=== PATIENT | female | born 1985 | race American Indian/Alaskan Native ===

== ENCOUNTER 2021-02-07 22:22 | Emergency (ER) | payer SELFPAY ==
[2021-02-08 03:46] VITALS: BP 120/86
== END 2021-02-08 04:22 | disposition home or self-care (01) ==
LOC: ED 22:22
DX: R05.9 Cough, unspecified (principal); R09.81 Nasal congestion; Z53.21 Procedure and treatment not carried out due to patient leaving prior to being seen by health care provider
CPT/HCPCS: 82962